=== PATIENT | male | born 1965 | race Caucasian/White ===

== ENCOUNTER 2016-05-26 13:21 | Inpatient (IN) | payer OTHER ==
[~2016-05-26] VITALS: Ht 185.4 cm; Wt 93.9 kg
[~2016-05-26 13:21] MED LIST: ALBUTEROL0.09 MG/A1 INH; FENOFIBRATE120 MG PO; GINKGO BILOBA60 M3 PO; GLUCOPHAGE1000 M1 PO; LIPOFEN50 MG PO; MULTI-DAY VITA1 EACH PO; PANTOPRAZOLE SO20 M1 PO; PRILOSEC OTC20 MG PO; ROBITUSSIN AC SY5 ML PO; TRAMADOL50 MG PO; VITAMIN B COMP1 EACH PO; VITAMIN E100 UNI2 PO; ZESTRIL10 M1 PO; ZINC50 M2 PO; ZITHROMAX Z-PA250 M1 PO; ZOFRAN ODT4 MG PO
--- NOTE | 2016-05-26 13:29 | NUR ---
TRIAGE: 50 Y/O MALE PRESENTS WITH SWOLLEN BILATERAL CHEEKS, UPPER AND BOTTOM LIP - UPPER>BOTTOM. ROOM AIR SPO2 95%. REPORTS SLIGHT SOB. REPORTS FEELS LIKE "ESOPHAGEAL RING IS SWELLING" WELL GROIN SWELLING. DENIES ITCHING INSIDE MOUTH. TOOK A BENDRYL AT 0600 THIS MORNING. REPORTS BROKEN TOOTH, RIGHT UPPER. REPORTS WAS DEEP CLEANING THE HOUSE YESTERDAY - BLEACH AND CLEANSERS. * ALSO ON LISINOPRIL.
--- NOTE | 2016-05-26 13:36 | NUR ---
HIRAM REILLY AT BEDSIDE FOR EVAL.
--- NOTE | 2016-05-26 13:44 | ED SKIN/ALLERGY COMPLAINT ---
History of Present Illness General Chief Complaint: Allergy Symptoms Stated Complaint: FACE SWOLLEN, ?ALLERGIC REACTION Source: patient Exam Limitations: no limitations Allergies Coded Allergies: Penicillins (CHILDHOOD REACTION 05/07/15) Reconcile Medications Fenofibrate 120 MG TABLET 1 TAB PO DAILY CHOLESTEROL (Reported) Ginkgo Biloba [place] Extract (Ginkgo Biloba) (Unknown Strength) TABLET (Unknown Dose) PO DAILY SUPPLEMENT (Reported) Insulin Glargine,Hum.rec.anlog (Lantus Solostar) 100 UNIT/ML (3 ML) INSULN.PEN 18 U SC BID DIABETES (Reported) Lisinopril (Zestril) 10 MG TABLET 1 TAB PO DAILY BP (Reported) Metformin HCl (Glucophage) 1,000 MG TABLET 1,000 MG PO BID DIABETES (Reported ) Pantoprazole Sodium 20 MG TABLET.DR 40 MG PO DAILY GI (Reported) Triage Note: TRIAGE: 50 Y/O MALE PRESENTS WITH SWOLLEN BILATERAL CHEEKS, UPPER AND BOTTOM LIP - UPPER>BOTTOM. ROOM AIR SPO2 95%. REPORTS SLIGHT SOB. REPORTS FEELS LIKE "ESOPHAGEAL RING IS SWELLING" WELL GROIN SWELLING. DENIES ITCHING INSIDE MOUTH. TOOK A BENDRYL AT 0600 THIS MORNING. REPORTS BROKEN TOOTH, RIGHT UPPER. REPORTS WAS DEEP CLEANING THE HOUSE YESTERDAY - BLEACH AND CLEANSERS. * ALSO ON LISINOPRIL. Triage Nurses Notes Reviewed? yes Onset: Abrupt Duration: day(s): (last ngith getting worse), constant, getting worse Timing: recent history Severity: moderate, severe No Modifying Factors: none HPI: 50-year-old male comes into emergency room for further evaluation of lip swelling that has been getting progressively worse. Patient reports it began last night. Patient is on lisinopril for blood pressure. Patient took his last dose of lisinopril is morning about 30 minutes prior to arrival. Patient reports that the swelling has progressively got worse and his upper lip. Denies any difficulty breathing at the moment. Patient reports she's also has some swelling in his genitalia. Denies any prior history of this ever happening before. Denies any other associated symptoms. (HIRAM JNOES) Vital Signs & Intake/Output Vital Signs & Intake/Output Vital Signs Date Time Temp Pulse Resp B/P Pulse O2 O2 Flow FiO2 Ox Delivery Rate 05/26 1406 967 05/26 1325 96.5 89 18 160/81 96 Room Air Room Air Past History Travel History Traveled to [place] past 21 day No Medical History Any Pertinent Medical History? 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 No (HIRAM JONES) Review of Systems Review of Systems Constitutional: Reports: no symptoms. EENTM: Reports: see HPI. Respiratory: Reports: see HPI. Cardiovascular: Reports: no symptoms. GI: Reports: no symptoms. Genitourinary: Reports: no symptoms. Musculoskeletal: Reports: no symptoms. Skin: Reports: no symptoms. Neurological/Psychological: Reports: no symptoms. Hematologic/Endocrine: Reports: no symptoms. Immunologic/Allergic: Reports: see HPI. All Other Systems: Reviewed and Negative (HIRAM JONES) Physical Exam Physical Exam General Appearance: well developed/nourished, mild distress Head: atraumatic Eyes: Bilateral: normal appearance. Ears, Nose, Throat: hearing grossly normal, angioedema upper and lower lip, mild swelling of tongue, no airway compromise or stridor at this time, Neck: normal inspection Respiratory: no respiratory distress Cardiovascular: regular rate/rhythm Back: normal inspection Extremities: normal inspection, normal range of motion, no edema Neurologic/Psych: awake, alert, oriented x 3, normal mood/affect Lymphatic: no anterior cervical amee (HIRAM JONES) Progress Differential Diagnosis: abscess/cellulitis, allergic reaction, anaphylaxis, angioedema, asthma, drug reaction Initial ED EKG: normal intervals, normal p-waves, normal sinus rhythm, rate (63) (HIRAM JONES) Plan of Care: Orders Procedure Date/time Status Patient Data 05/26 1501 Active EKG 05/26 1446 Active Telemetry/Transmitter Engineer 05/26 1342 Active CBC WITHOUT DIFFERENTIAL 05/26 1342 Complete BASIC METABOLIC PANEL 05/26 1342 Complete Laboratory Tests 05/26/16 1403: Anion Gap 10, Estimated GFR > 60, BUN/Creatinine Ratio 18.9, Glucose 108 H, Calcium 10.4 H, CBC w Diff NO MAN DIFF REQ, RBC 5.14, MCV 89.3, MCH 29.6, RDW 12.8, MPV 7.5, Gran % 74.6, Lymphocytes % 21.4, Monocytes % 1.4 L, Eosinophils % 2.3, Basophils % 0.3, Absolute Granulocytes 8.2 H, Absolute Lymphocytes 2.4, Absolute Monocytes 0.2, Absolute Eosinophils 0.3, Absolute Basophils 0, PUBS MCHC 33.1 Departure Departure Disposition: STILL A PATIENT Condition: Stable Clinical Impression 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 Patient took his lisinopril about 30 minutes prior to arrival. Patient will require close observation and airway management. Patient may require anesthesia intubation if the patient decompensate. Frequent vital checks. High risk. Patient would do poorly as an outpatient (HIRAM JONES) PA/SIGNAL MAINTENANCE TECHNICIAN Co-Sign Statement Statement: ED Attending supervision documentation- [X] I saw and evaluated the patient. I have also reviewed all the pertinent lab results and diagnostic results. I agree with the findings and the plan of care as documented in the PA's/SIGNAL MAINTENANCE TECHNICIAN's documentation. [] I have reviewed the ED Record and agree with the PA's/SIGNAL MAINTENANCE TECHNICIAN's documentation. [] Additions or exceptions (if any) to the PAs/SIGNAL MAINTENANCE TECHNICIAN's note and plan are summarized below: [] (JEISON COLVIN,HAL Gray) Critical Care Note Critical Care Note Critical Care Time: 30-74 min (35) (HIRAM JONES)
--- NOTE | 2016-05-26 14:05 | NUR ---
IV ESTABLISHED MEDICATED DIRECTED (SEE MAR)
[2016-05-26 14:09] LABS: ABSOLUTE BASOPHIL COUNT 0 /CUMM (0.0-0.2); ABSOLUTE EOSINOPHIL COUNT 0.3 /CUMM (0.0-0.7); ABSOLUTE GRANULOCYTE CT 8.2 /CUMM (1.4-6.5); ABSOLUTE LYMPH COUNT 2.4 /CUMM (1.2-3.4); ABSOLUTE MONOCYTE COUNT 0.2 /CUMM (0.10-0.60); BASOPHIL % 0.3 % (0.0-2.0); EOSINOPHIL % 2.3 % (0-5); GRANULOCYTE % 74.6 % (42.2-75.2); HEMATOCRIT 45.9 % (42-52); MEAN CORPUSCULAR HGB 29.6 PG (27.0-31.0); MEAN CORPUSCULAR HGB CONC 33.1 G/DL (33.0-37.0); MEAN CORPUSCULAR VOLUME 89.3 FL (80.0-94.0); MEAN PLATELET VOLUME 7.5 FL (7.4-10.4); PLATELET COUNT 302 /CUMM (130-400); RBC DISTRIBUTION WIDTH 12.8 % (11.5-14.5); RED BLOOD CELL CT 5.14 /CUMM (4.70-6.10)
[2016-05-26] MEDS ORDERED: LANTUS SOL100 UNIT/1 SC (15:00)
--- NOTE | 2016-05-26 15:38 | NUR ---
HOUSE STAFF IN ROOM WITH PT
--- NOTE | 2016-05-26 15:50 | History & Physical ---
LAURA RICHARD MD 05/26/16 7330: General Information and HPI MD Statement: I have seen and personally examined TOMAS BAPTISTE and documented this H&P. The patient is a 50 year old M who presented with a patient stated chief complaint of [lip swelling]. Source of Information: patient, family Exam Limitations: no limitations History of Present Illness: 50-year-old male with PMH of HTN, HLD, IDDM, esophageal ring, presented with bilateral cheeks, lips, and scrotal swelling. It started at 5am this morning when he woke up. He took benadryl at 6am, without significant relief. He finally presented to the ED around 130 pm, as per ED note, reports feeling like "esophageal ring is swelling". Pt took his lisinopril this morning, which he has been taking for 2 years. He denies any new meds, and reports that he has been on his current meds for 2 years. He denies eating unusual food, but recalls that he had a similar episode of swelling when he was a child, when he ate ham (but pt unsure). No recurrent episodes. Yesterday, his right upper tooth broke, and he put advil gel cap in the area to help relieve the pain. He has not seen a dentist yet. He does not know how it broke. Yesterday, he spent the day cleaning the house with bleach. He had 5-6 drinks of beer and bourbon yesterday, which is not unusual for him and his girlfriend to do once a week. Currently, he reports "upset stomach", mild abdominal discomfort. Denies burning sensation, nausea, vomiting, constipation, diarrhea. In the ED, he received 125 mg IV solumedrol, 50 mg IV diphenhydramine, 20 mg IV famotidine. On our examination, he has bilateral cheek, upper and lower lip swelling, speaking with a hot potato voice (not his baseline), some scrotal swelling. His respiratory status currently stable. No tongue swelling noted, but pt feels that the anterior part of his tongue feels swollen. No tenderness appreciated on both cheeks, particularly at the site where the tooth broke. I noticed that his left eye appears more swollen and droopy, but according to his girlfriend, that is chronic. Pupils round and reactive to light. Extraocular muscle movements intact. I was on the phone with Dr. Hansen (ENT) to evaluate his airway. I have told the charge nurse in the ED, Tosha, he will need flexible fiberoptic laryngoscope with lightsource. She said she will get ENT cart ready for him. Allergies/Medications Home Med list Fenofibrate 120 MG TABLET 1 TAB PO DAILY CHOLESTEROL (Reported) Ginkgo Biloba [place] Extract (Ginkgo Biloba) (Unknown Strength) TABLET (Unknown Dose) PO DAILY SUPPLEMENT (Reported) Insulin Glargine,Hum.rec.anlog (Lantus Solostar) 100 UNIT/ML (3 ML) INSULN.PEN 18 U SC BID DIABETES (Reported) Lisinopril (Zestril) 10 MG TABLET 1 TAB PO DAILY BP (Reported) Metformin HCl (Glucophage) 1,000 MG TABLET 1,000 MG PO BID DIABETES (Reported ) Pantoprazole Sodium 20 MG TABLET.DR 40 MG PO DAILY GI (Reported) Past History Travel History Traveled to [place] past 21 day No Medical History Neurological: NONE EENT: NONE Cardiovascular: hypertension, hyperlipidemia Respiratory: NONE Gastrointestinal: GERD, ESOPHAGEAL RING STRETCHED Hepatic: NONE Renal: NONE Musculoskeletal: NONE Psychiatric: NONE Endocrine: diabetes Blood Disorders: NONE 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 Home Who Do You Live With? Girlfriend Services at Home: None Primary Language: German Smoking Status: Never Smoked ETOH Use: occasional use Illicit Drug Use: denies illicit drug use Functional Ability ADLs Independent: dressing, eating, toileting, bathing. Ambulation: independent IADLs Independent: shopping, housework, finances, food prep, telephone, transportation , medication admin. Review of Systems Review of Systems Constitutional: Denies: chills, fever. EENTM: Denies: visual changes. Cardiovascular: Denies: chest pain, palpitations. Respiratory: Reports: cough. Denies: short of breath. GI: Reports: abdominal pain. Denies: constipation, diarrhea, nausea, vomiting. Genitourinary: Denies: dysuria. Exam & Diagnostic Data Last 24 Hrs of Vital Signs/I&O Vital Signs Date Time Temp Pulse Resp B/P Pulse O2 O2 Flow FiO2 Ox Delivery Rate 05/26 1406 967 05/26 1325 96.5 89 18 160/81 96 Room Air Room Air Intake & Output 05/26 1600 05/26 0800 05/26 0000 Intake Total Output Total Balance Patient 93.894 kg Weight Physical Exam General Appearance Alert, Oriented X3, Cooperative, No Acute Distress Skin Noticable swelling of cheeks,lips and scrotum and base of penis HEENT EOMI, Mucous Membr. moist/pink, tongue does not appear swollen Neck Supple, No JVD, +2 Carotid Pulse wo Bruit Cardiovascular Regular Rate, Normal S1, Normal S2, No Murmurs, Gallops, Rubs Lungs Clear to Auscultation, Normal Air Movement Abdomen Normal Bowel Sounds, Soft, No Tenderness Neurological Normal Speech, Strength at 5/5 X4 Ext, Normal Tone Extremities No Edema Last 24 Hrs of Labs/Edgar: Laboratory Tests 05/26/16 1403: Anion Gap 10, Estimated GFR > 60, BUN/Creatinine Ratio 18.9, Glucose 108 H, Calcium 10.4 H, Troponin I < 0.01, CBC w Diff NO MAN DIFF REQ, RBC 5.14, MCV 89.3, MCH 29.6, RDW 12.8, MPV 7.5, Gran % 74.6, Lymphocytes % 21.4, Monocytes % 1.4 L, Eosinophils % 2.3, Basophils % 0.3, Absolute Granulocytes 8.2 H, Absolute Lymphocytes 2.4, Absolute Monocytes 0.2, Absolute Eosinophils 0.3, Absolute Basophils 0, PUBS MCHC 33.1 Microbiology 05/26 1555 UPPER RESP: Surveillance Culture - ORD 05/26 1555 GI: Surveillance Culture - ORD Diagnostic Data EKG Results T wave inversion V4,V5 Sinus rhythm Diffuse flat T waves (not new) Assessment/Plan Assessment: 50-year-old male with PMH of HTN, HLD, IDDM, esophageal ring, presented with bilateral cheeks, lips, and scrotal swelling. No history of new meds/food. Possible chemical exposure from home cleaning. 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 He has not seen a dentist yet. Pt admitted to ICU for close monitoring of respiratory status. # Bilateral cheeks, lips, and scrotal swelling, unknown trigger, been on lisinopril for 2 years - In the ED, he received 125 mg IV solumedrol, 50 mg IV diphenhydramine, 20 mg IV famotidine. - Currently respiratory status stable * Continue solumedrol 40 Q6 * ENT consult placed with Dr. Hansen, will evaluate his airway with flexible fiberoptic laryngoscope with lightsource. ED charge nurse will get ENT cart. * Low threshold to intubate * Dental f/u at discharge # Hx of HLD * Continue fenofibrate # Hx of DM * Hold home lantus and metformin * Accucheck, and novolog SS Diet: Advance as tolerated DVT ppx: mech and pharm FULL CODE As Ranked By This Provider Problem List: 1. Angioedema Core Measures/Miscellaneous Acute Coronary Syndrome ACS Diagnosis: No Cerebrovascular Accident CVA/TIA Diagnosis: No Congestive Heart Failure CHF Diagnosis: No Venous Thromboembolism VTE Risk Factors: Acute medical illness No Mech VTE prophylaxis d/t: No contraindications No VTE Pharm Prophylaxis d/t: No contraindications VTE Diagnosis: No VTE Type: NONE VTE Confirmed by (Test): NONE Severe Sepsis Severe Sepsis Present: No Septic Shock Septic Shock Present: No Miscellaneous Documentation Attending Case Discussed With: JHONNY COLVIN,GAYLE Primary Care Physician: REX RODRIGUEZ MD Patient sees these Specialists Dr. Paulino NIXON Level of Patient Care: Critical Care (CRI) QUE RICHARD 05/26/16 1639: Resident Review Statement Resident Statement: discussed with human resource internship, agreed with human resource internship Other Findings: Patient is 50-year-old male with past medical history of hyperlipidemia, hypertension, diabetes mellitus came with a chief complaint of swelling of lips, tongue and groin area since this morning. Patient states that yesterday he did a lot of cleaning of the house with bleach along with his until 7 PM. He reported some itch in his groin area yesterday and this morning when he woke up, he had swollen lips and tongue around 5 AM. Patient took Benadryl at home and went back to sleep. When he woke up again he noticed that the swelling of the tongue lips and mouth has worsened. He does not report of any difficulty breathing, rash, any new medication (he has been on lisinopril since 2 years now and never had such symptoms), no new food etc. patient reports that he had a similar episode as a child when he was 10 years old and it was probably secondary into ham. EKG demonstrative some flattening of T waves in LEAD 3 and T-wave inversion in V4 V5 Assessment and plan Will admit patient to ICU for closer monitoring of angioedema Patient got 125 mg of Solu-Medrol and 50 mg of IV Benadryl in ER, per his swelling has improved a little bit. Will continue him on Solu-Medrol [address] Martínez is updated regarding his status We'll get ENT consult Will hold off lisinopril for now Low threshold for intubation if patient deveops SOB or worsening of his angioedema. DVT prophylaxis Alps Patient is full code JHONNY COLVIN,GAYLE 05/27/16 1023: General Information and HPI Allergies/Medications Allergies: Coded Allergies: Penicillins (CHILDHOOD REACTION 05/07/15) lisinopril (ANGIODEMA 05/26/16) Attending MD Review Statement Attending Statement Attending MD Statement: examined this patient, discuss w/resident/PA/EARLY CHILDHOOD TEACHER ASSISTANT, agreed w/resident/PA/EARLY CHILDHOOD TEACHER ASSISTANT, discussed with family, reviewed EMR data (avail) Attending Assessment/Plan: Patient seen and examined. Plan of care discussed with the medical team and the patient. Available lab work and radiology test reports were reviewed. Patient was seen in emergency room. Patient currently was cleaning his house with the different corporate counsel to 7 PM the before admission. His is on lisinopril had taken a dose in the morning and on the admission day did not take it in the morning. In fact he took a dose at 1 PM long after his symptoms appeared. He presented with swelling of lips and tongue without any dysphonia or airway compromise. Patient will be admitted to ICU for close monitoring. Will obtain ENT and pulmonary consult. Patient was given Solu-Medrol Benadryl and Pepcid. I believe this is likely from allergic reaction to chemicals he was using for cleaning the house.
--- NOTE | 2016-05-26 16:54 | NUR ---
PT HAS BED ASSIGNMENT 105
--- NOTE | 2016-05-26 17:03 | NUR ---
ENT DR WAN AT BEDSIDE AT THIS TIME
--- NOTE | 2016-05-26 17:21 | NUR ---
DR. WAN STATES NO EDEMA NOTED IN PT'S THROAT DECREASED SWELLING TO UPPER AND LOWER LIPS STATES HIS TOP LIP STILL FEELS A LITTLE FUNNY
--- NOTE | 2016-05-26 17:39 | NUR ---
REPORT GIVEN TO ARLIN JAMES ICU TRANSPORT NOTIFIED
[2016-05-26 18:28] VITALS: BP 156/74
--- NOTE | 2016-05-26 18:34 | NUR ---
1800: RECEIVED PT FROM ER. A+OX3. ON RA. DENIES SOB OR TROUBLE SWALLOWING. NSR ON MONITOR. VSS. AFEBRILE. LUNGS CLEAR. ABDOMEN SOFT, +BS. LAST BM TODAY. VOIDING IN URINAL. SKIN INTACT. ALPS ON. PT STATES HIS SWELLING FEELS BETTER BUT HE STILL FEELS SLIGHT SWELLING IN HIS UPPER LIP, CHEEKS AND ON HIS NOSE. PER ENT NO THROAT SWELLING. PT TOLERATING CLEAR LIQUID DIET. CHOPPED DIET ORDERED FOR PT. PT AND FAMILY ORIENTED TO ROOM AND CALL MCHUGH. URINAL PROVIDED. IV SOLUMEDROL GIVEN VIA LEFT HAND IV. WILL MONITOR.
--- NOTE | 2016-05-26 19:08 | NUR ---
AUTO CUFF READING 180/80'S. MANUAL B/P 176/80. OEI AWARE
--- NOTE | 2016-05-26 22:59 | NUR ---
PT IS A/0 X 3 ZAPATA TO COMMAND DENIES PAIN, RESP DISTRESS OR DIFFICULTY SWALLOWING.
[2016-05-27] VITALS: BP 135/60
--- NOTE | 2016-05-27 06:09 | Event Note ---
Event Note Event Note: Notified by nursing staff that patient had sudden onset mild shortness of breath. On evaluation of the patient, his vital signs were within normal limits and specifically his oxygen saturation was 95%. Patient did sound muffled and on examination of the oropharynx, his uvula appears enlarged and blocking a large portion of the airway. Tounge also appeared enlarged. Patient examined by myself and my resident. IV pepcid, IV benadryl ordered and patient given his AM IV solumedrol. Will monitor patient closely. Patient responding well and voice less muffled. O2 saturation maintained. Will make AM team aware of overnight events.
[2016-05-27 07:08] LABS: ABSOLUTE BASOPHIL COUNT 0 /CUMM (0.0-0.2); ABSOLUTE EOSINOPHIL COUNT 0 /CUMM (0.0-0.7); ABSOLUTE LYMPH COUNT 0.9 /CUMM (1.2-3.4); ABSOLUTE MONOCYTE COUNT 0.1 /CUMM (0.10-0.60); BASOPHIL % 0.1 % (0.0-2.0); EOSINOPHIL % 0 % (0-5); HEMATOCRIT 41.6 % (42-52); MEAN CORPUSCULAR HGB 30.1 PG (27.0-31.0); MEAN CORPUSCULAR HGB CONC 33.3 G/DL (33.0-37.0); MEAN CORPUSCULAR VOLUME 90.5 FL (80.0-94.0); MEAN PLATELET VOLUME 7.9 FL (7.4-10.4); PLATELET COUNT 307 /CUMM (130-400); RBC DISTRIBUTION WIDTH 12.8 % (11.5-14.5); RED BLOOD CELL CT 4.59 /CUMM (4.70-6.10)
--- NOTE | 2016-05-27 07:21 | Cons- CRCU ---
See Addendum LAURA RICHARD MD 05/27/16 0720: General Information and HPI Consulting Request Date of Consult: 05/27/16 History of Present Illness: Pt was admitted for angioedema most likely secondary to lisinopril use. ENT evaluated his airway in the ED. In the morning around 430am, he was having trouble breathing and his uvula and tongue was noted to be edematous, given pepcid, solumedrol, and benadryl, now feeling improved. He continues to have muffled (hot potato voice). reports that swelling at the base of the penis resolved but continues to have scrotal swelling. I have told the pt in detail that he should avoid taking ACEI (ends in -prils), and if possible also avoid ARBs (ends in -sartan). Pt and his girlfriend showed clear understanding. We will try 10mg amlodipine for BP control. He is now stable to be transferred to . Called ENT to re-evaluate him. Dr. Díaz bone glue maker. Methylpred reduced to 40 q8. 24 hours: max temp 98.1 SR 72-90 RR 16-20 Systolic BP 123-182 diastolic BP 60-83 Allergies/Medications Home Med List: Fenofibrate 120 MG TABLET 1 TAB PO DAILY CHOLESTEROL (Reported) Ginkgo Biloba [place] Extract (Ginkgo Biloba) (Unknown Strength) TABLET (Unknown Dose) PO DAILY SUPPLEMENT (Reported) Insulin Glargine,Hum.rec.anlog (Lantus Solostar) 100 UNIT/ML (3 ML) INSULN.PEN 18 U SC BID DIABETES (Reported) Lisinopril (Zestril) 10 MG TABLET 1 TAB PO DAILY BP (Reported) Metformin HCl (Glucophage) 1,000 MG TABLET 1,000 MG PO BID DIABETES (Reported ) Pantoprazole Sodium 20 MG TABLET. 40 MG PO DAILY GI (Reported) Review of Systems Review of Systems Constitutional: Reports: see HPI. Past History Travel History Traveled to [place] past 21 day No Medical History Neurological: NONE EENT: NONE Cardiovascular: hypertension, hyperlipidemia Respiratory: NONE Gastrointestinal: GERD, ESOPHAGEAL RING STRETCHED Hepatic: NONE Renal: NONE Musculoskeletal: NONE Psychiatric: NONE Endocrine: diabetes Blood Disorders: NONE Cancer(s): NONE DIRECTOR INDUSTRIAL NURSING/Reproductive: NONE Surgical History Surgical History: non-contributory Psychosocial History Where Do You Live? Home Who Do You Live With? Girlfriend Services at Home: None Primary Language: Bengali Smoking Status: Never Smoked ETOH Use: occasional use Illicit Drug Use: denies illicit drug use Functional Ability ADLs Independent: dressing, eating, toileting, bathing. Ambulation: independent IADLs Independent: shopping, housework, finances, food prep, telephone, transportation , medication admin. Exam & Diagnostic Data Last 24 Hrs of Vital Signs/I&O Vital Signs Date Time Temp Pulse Resp B/P Pulse O2 O2 Flow FiO2 Ox Delivery Rate 05/27 0800 95 Room Air Room Air 05/27 0800 97.8 78 22 134/70 95 Room Air Room Air 05/27 0000 97.3 80 18 135/60 94 Room Air 05/26 2024 92 162/67 05/26 1828 97.6 72 18 156/74 95 Room Air 05/26 1728 98.2 75 16 132/61 94 Room Air 05/26 1515 80 16 148/78 95 05/26 1406 967 05/26 1325 96.5 89 18 160/81 96 Room Air Room Air Intake & Output 05/27 1600 05/27 0800 05/27 0000 Intake Total 200 1040 Output Total 700 350 Balance -500 690 Intake, Oral 200 1040 Output, Urine 700 350 Patient 93.894 kg Weight Physical Exam General Appearance: alert, awake, comfortable, no respiratory distress Head: bilateral cheek swelling , uvula and tongue does not appear enlarged Eyes: Bilateral: normal appearance, PERRL, EOMI. Ears, Nose, Throat: normal pharynx, poor dentition Respiratory: normal breath sounds, chest non-tender, no respiratory distress Cardiovascular: regular rate/rhythm, edema, gallop Last 48 Hrs of Labs/Edgar: Laboratory Tests 05/27/16 0630: Anion Gap 11, Estimated GFR > 60, BUN/Creatinine Ratio 20.0, Hemoglobin A1c 7.4 H, CBC w Diff NO MAN DIFF REQ, RBC 4.59 L, MCV 90.5, MCH 30.1, RDW 12.8, MPV 7.9, Gran % 90.5 H, Lymphocytes % 8.6 L, Monocytes % 0.8 L, Eosinophils % 0, Basophils % 0.1, Absolute Granulocytes 10.0 H, Absolute Lymphocytes 0.9 L, Absolute Monocytes 0.1 L, Absolute Eosinophils 0, Absolute Basophils 0, PUBS MCHC 33.3 05/26/16 1403: Anion Gap 10, Estimated GFR > 60, BUN/Creatinine Ratio 18.9, Glucose 108 H, Calcium 10.4 H, Troponin I < 0.01, CBC w Diff NO MAN DIFF REQ, RBC 5.14, MCV 89.3, MCH 29.6, RDW 12.8, MPV 7.5, Gran % 74.6, Lymphocytes % 21.4, Monocytes % 1.4 L, Eosinophils % 2.3, Basophils % 0.3, Absolute Granulocytes 8.2 H, Absolute Lymphocytes 2.4, Absolute Monocytes 0.2, Absolute Eosinophils 0.3, Absolute Basophils 0, PUBS MCHC 33.1 Assessment/Plan Impression/Plan: 50-year-old male with PMH of HTN, HLD, IDDM, esophageal ring, presented with bilateral cheeks, lips, and scrotal swelling. No history of new meds/food. Possible chemical exposure from home cleaning. 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 He has not seen a dentist yet. Pt admitted to ICU for close monitoring of respiratory status. # Bilateral cheeks, lips, and scrotal swelling, unknown trigger, been on lisinopril for 2 years - In the ED, he received 125 mg IV solumedrol, 50 mg IV diphenhydramine, 20 mg IV famotidine. - Currently respiratory status stable although he had an episode of difficulty breathing on 05/27/16 requiring another dose of benadryl and pepcid. - CXR: Left basilar airspace opacity may reflect atelectasis, an underlying infiltrate is not excluded. * Solumedrol 80 Q 8 as per ENT * Order benadryl and pecid as needed * Dr. Hansen from ENT evaluated his airway in the ED, spoke to Dr. Díaz, recommend solumedrol 80Q8 for 2 days, then reduce to q12 after. Dr. Díaz does not think he needs to come and re-evaluate his airway, if his respiratory status worsens, he suggests intubation. Expect edema to improve in 48 hours. * Low threshold to intubate * Dental f/u at discharge * Follow up Pt/INR * Stable for transfer to with repeat ENT evaluation. # Hx of HTN * Lisinopril added to allergy list * Pt has been instructed to not take ACEI/ARBs (-pril/-sartan) * Amlodipine 10 mg started, continue as outpatient if BP well controlled # Hx of HLD * Continue fenofibrate # Hx of DM - hba1c 7.4 * Hold home lantus and metformin * Accucheck, and novolog SS # Continue home meds - Protonix Diet: heart healthy (chopped and thin) DVT ppx: mech and pharm (heparin) FULL CODE Consult Acknowledgment - Thank you for your consult request. CLEMENT ABDI MD 05/27/16 0914: General Information and HPI Consulting Request Date of Consult: 05/27/16 Requested By: Li Reason for Consult: Angioedema Source of Information: patient Exam Limitations: no limitations Allergies/Medications Allergies: Coded Allergies: Penicillins (CHILDHOOD REACTION 05/07/15) lisinopril (ANGIODEMA 05/26/16) Current Medications: Current Medications Sig/Madelyn Start time Last Medication Dose Route Stop Time Status Admin Amlodipine Besylate 5 MG ONCE ONE 05/26 1915 DC 05/26 PO 05/26 191 2024 Diphenhydramine HCl 50 MG ONCE ONE 05/27 0615 DC 05/27 IV 05/27 0616 0612 Diphenhydramine HCl 0 .STK-MED ONE 05/26 1355 DC .ROUTE Diphenhydramine HCl 50 MG ONCE ONE 05/26 1345 DC 05/26 IV 05/26 1346 1405 Famotidine 20 MG ONCE ONE 05/27 0615 DC 05/27 IV 05/27 0616 0627 Famotidine 0 .STK-MED ONE 05/26 1355 DC IV Famotidine 20 MG ONCE ONE 05/26 1345 DC 05/26 IV 05/26 1346 1405 Fenofibrate 96 MG DAILY 05/27 1000 AC 05/27 PO 0852 Insulin Aspart 0 TIDAC 05/26 1700 AC 05/27 SC 0848 Melatonin 5 MG AT BEDTIME 05/26 2200 AC 05/26 PO 2233 Methylprednisolone 40 MG Q6 05/26 1800 AC 05/27 IV 0600 Methylprednisolone 0 .STK-MED ONE 05/26 1355 DC .ROUTE Methylprednisolone 125 MG ONCE ONE 05/26 1345 DC 05/26 IV 05/26 1346 1405 Review of Systems Comments 18 point review of systems was performed and reviewed. Please see pertinent positives and pertinent negatives in the HPI. Otherwise ROS is negative. Exam & Diagnostic Data Last 24 Hrs of Vital Signs/I&O Vital Signs Date Time Temp Pulse Resp B/P Pulse O2 O2 Flow FiO2 Ox Delivery Rate 05/27 0000 97.3 80 18 135/60 94 Room Air 05/26 2024 92 162/67 05/26 1828 97.6 72 18 156/74 95 Room Air 05/26 1728 98.2 75 16 132/61 94 Room Air 05/26 1515 80 16 148/78 95 05/26 1406 967 05/26 1325 96.5 89 18 160/81 96 Room Air Room Air Intake & Output 05/27 1600 05/27 0800 05/27 0000 Intake Total 200 1040 Output Total 700 350 Balance -500 690 Intake, Oral 200 1040 Output, Urine 700 350 Patient 207 lb Weight Last 48 Hrs of Labs/Edgar: Laboratory Tests 05/27/16 0630: Anion Gap 11, Estimated GFR > 60, BUN/Creatinine Ratio 20.0, CBC w Diff NO MAN DIFF REQ, RBC 4.59 L, MCV 90.5, MCH 30.1, RDW 12.8, MPV 7.9, Gran % 90.5 H, Lymphocytes % 8.6 L, Monocytes % 0.8 L, Eosinophils % 0, Basophils % 0.1, Absolute Granulocytes 10.0 H, Absolute Lymphocytes 0.9 L, Absolute Monocytes 0.1 L, Absolute Eosinophils 0, Absolute Basophils 0, PUBS MCHC 33.3 05/26/16 1403: Anion Gap 10, Estimated GFR > 60, BUN/Creatinine Ratio 18.9, Glucose 108 H, Calcium 10.4 H, Troponin I < 0.01, CBC w Diff NO MAN DIFF REQ, RBC 5.14, MCV 89.3, MCH 29.6, RDW 12.8, MPV 7.5, Gran % 74.6, Lymphocytes % 21.4, Monocytes % 1.4 L, Eosinophils % 2.3, Basophils % 0.3, Absolute Granulocytes 8.2 H, Absolute Lymphocytes 2.4, Absolute Monocytes 0.2, Absolute Eosinophils 0.3, Absolute Basophils 0, PUBS MCHC 33.1 Assessment/Plan Other Findings/Comments: IClement M.D. have examined this patient, reviewed available EMR data, personally reviewed images, discussed with resident/PA/TRAFFIC WORKER, discussed management plan with housestaff and nursing staff, discussed managment plan all of healthcare providers, discussed management plan with patient and/or family, agreed with resident/PA/TRAFFIC WORKER. The past history and parts of the chart have been autopopulated. Impression 50 year old man - likely lisinopril induced angioedema, improved - htn, hyperlipidemia, dm Plan - ENT appreciated, progress note in chart - no airway swelling on laryngoscopy per ENT - change htn meds to norvasc will increase to 10mg - solumedrol reduce to q8h for now, until re-evaluated by ENT - benadryl, steroids, pepcid - baseline CXR, next blood draw add coags - cointinue tricor - insulin coverage, can check a1c - transfer to DVT prophylaxis at all times TTS 60 min Consult Acknowledgment - Thank you for your consult request.
[2016-05-27 08:00] VITALS: BP 134/70
--- NOTE | 2016-05-27 08:16 | NUR ---
LATE ENTRY:AT 0600 PT C/O OF SUDDEN ONSET DIFFICULTY BREATHING, TALKING. RUFUS CALLED STAT O2 SAT 98% ON ROOM AIR 6AM STEROID GIVEN IMMEDIATELY, PT EXTREMELY NERVOUS NURSE REMAINS AT BEDSIDE.HOB ELEVATED. SEEN BY DR MICHI GUDINO IVP GIVEN, B/W DRAWN ADDITIONAL IV ACCESS. PT SKIN PINK BUT APPEARS TAUTE, FIRM SHINY, RESEMBLING A CONDITION LIKE SCLERODERMA. DIFFICULT TO OBTAIN BLOOD AND IV AT THIS TIME. PT BEGAN EPISODE WITH HIS SNORING WAKING HIM UP AND EXTREMELY STUFFY NOSE. WITHIN A FEW MINUTES AFTER BEING MEDICATED, NASAL STUFFINESS RESOLVED, SPEECH IMPROVED, LESS ANXIOUS. O2 SAT DID RETURN TO BASELINE OF 94. SEEN BY RESIDENT AND LONG WALL MINING MACHINE TENDER AGAIN. NURSE REMAINED AT BEDSIDE THROUGHOUT EPISODE.
[2016-05-27 08:25] LABS: GRANULOCYTE % 90.5 % (42.2-75.2)
--- NOTE | 2016-05-27 10:00 | RADIOLOGY REPORT ---
EXAMINATION: XR PORTABLE CHEST CLINICAL INFORMATION: Stridor COMPARISON: 11/23/2015 TECHNIQUE: Portable AP view of the chest was obtained. FINDINGS: The cardiomediastinal silhouette is stable. There is an airspace opacity in the left lung base, the lungs are otherwise clear. No pleural effusion or pneumothorax identified. IMPRESSION: Left basilar airspace opacity may reflect atelectasis, an underlying infiltrate is not excluded.
--- NOTE | 2016-05-27 10:22 | Admission Certification ---
Admission Certification Certification Statement - As attending physician, I certify that at the time of - admission, based on clinical presentation, severity of - symptoms, need for further diagnostic testing and - therapeutic interventions, and risk of adverse outcomes - without in-hospital treatment, in my clinical assessment, - this patient requires an acute hospital stay for a minimum - of two nights or longer. I have also considered psychsocial - factors such as support system, advanced age, financial - issues, cognitive issues, and failed out-patient treatments, - past re-admission history, safety of patient, and lack of - compliance as applicable. Specific rationale supporting this admission is: Angioedema and allergic reaction with impending airway compromise
[2016-05-27 16:00] VITALS: BP 130/64
[2016-05-27 16:10] LABS: PT 11.4 SEC (9.4-12.5)
--- NOTE | 2016-05-27 19:39 | NUR ---
Received patient at 0800, Alert and oriented x3. C/O some differences in his voice/mouth from the swelling episode that he had at 6 am but that it is improving. Small amount of facial swelling noted to the jaw but tongue and rest of the mouth present WNL. Skin otherwise intact and without edema. Positive pedal and radial pulses bilaterally. NSR 70s on the monitor, WFU=201m. Patient denies CP. On room air, lungs clear. O2 sat 94-96%. Voiding in the toilet/urinal independently. Accu check's with meals w/ novolog given and diet changed to chopped CC3. Patient given emotional reassurance.
[2016-05-27 23:00] VITALS: BP 148/80
--- NOTE | 2016-05-28 07:31 | PN- Housestaff ---
JOSE MANUEL COLVIN,LAURA 05/28/16 0731: Subjective Follow-up For: Angioedema Subjective: Pt complains of swollen tongue last night. Pt seen today, feels itchy all over. solumedrol decreased to 40q12, will change to prednisone 40 mg tomorrow (decrease 10 mg every 2 days), benadryl ordered prn , and pepcid ordered. His voice is now back to baseline, and he is feeling improved, with only mild swelling of the cheeks and persistent lower lip swelling. Scrotal swelling has resolved. Review of Systems Constitutional: Reports: see HPI. Objective Last 24 Hrs of Vital Signs/I&O Vital Signs Date Time Temp Pulse Resp B/P Pulse O2 O2 Flow FiO2 Ox Delivery Rate 05/28 0855 86 150/82 05/28 0800 98.2 86 20 150/82 98 Room Air 05/27 2300 97.6 84 16 148/80 97 Room Air 05/27 1600 94 Room Air Room Air 05/27 1600 97.2 72 18 130/64 94 Room Air Room Air 05/27 1235 174/83 Intake & Output 05/28 1600 05/28 0800 05/28 0000 Intake Total 240 300 Output Total Balance 240 300 Intake, Oral 240 300 Physical Exam General Appearance: Alert, Oriented X3, Cooperative, No Acute Distress Cardiovascular: Regular Rate, Normal S1, Normal S2, No Murmurs Lungs: Clear to Auscultation, Normal Air Movement Abdomen: Normal Bowel Sounds, Soft, No Tenderness Current Medications: Current Medications Sig/Madelyn Start time Last Medication Dose Route Stop Time Status Admin Amlodipine Besylate 10 MG DAILY 05/27 1000 AC 05/28 PO 0855 Diphenhydramine HCl 25 MG AT BEDTIME PRN 05/28 2200 AC PO Diphenhydramine HCl 50 MG ONCE ONE 05/28 1030 DC PO 05/28 1031 Famotidine 20 MG BID 05/28 1002 AC PO Fenofibrate 96 MG DAILY 05/27 1000 AC 05/28 PO 0855 Heparin Sodium 5,000 UNIT Q8 05/27 1400 AC 05/28 (Porcine) SC 0611 Insulin Aspart 0 AT BEDTIME 05/28 2200 AC SC Insulin Aspart 0 TIDAC 05/28 1200 AC 05/28 SC 0852 Insulin Aspart 0 TIDAC/HS 05/28 0800 DC 05/27 SC 2128 Insulin Aspart 5 UNITS .STK-MED ONE 05/27 2124 DC SC 05/27 2125 Insulin Aspart 0 TIDAC 05/26 1700 DC 05/27 SC 1718 Melatonin 5 MG AT BEDTIME 05/26 2199 AC 05/27 PO 2119 Methylprednisolone 40 MG 0600,1800 05/28 1800 AC IV Methylprednisolone 80 MG Q8 05/27 2200 AC 05/28 IV 0614 Methylprednisolone 40 MG ONCE ONE 05/27 1445 DC 05/27 IV 05/27 1446 1545 Methylprednisolone 40 MG Q8 05/27 1400 DC 05/27 IV 1434 Omeprazole 40 MG DAILY AC 05/27 0930 AC 05/28 PO 0611 Last 24 Hrs of Lab/Edgar Results Last 24 Hrs of Labs/Mics: Laboratory Tests 05/27/16 1430: PT 11.4, INR 1.09 Assessment/Plan Assessment: 50-year-old male with PMH of HTN, HLD, IDDM, esophageal ring, presented with bilateral cheeks, lips, and scrotal swelling. He has been taking lisinopril for 2 years. No history of new meds/food. Possible chemical exposure from home cleaning. 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 He has not seen a dentist yet. Pt admitted to ICU for close monitoring of respiratory status, subsequently transferred to . # Bilateral cheeks, lips, and scrotal swelling, unknown trigger, been on lisinopril for 2 years - In the ED, he received 125 mg IV solumedrol, 50 mg IV diphenhydramine, [address] Hansen from ENT evaluated his airway in the ED, found to be patent. - Currently respiratory status stable although he had an episode of difficulty breathing on 05/27/16 requiring another dose of benadryl and pepcid. I spoke to Dr. Daíz, recommend solumedrol 80Q8 for 2 days, then reduce to q12 after. Dr. Díaz does not think he needs to come and re-evaluate his airway, if his respiratory status worsens, he suggests intubation. Expect edema to improve in 48 hours. - CXR: Left basilar airspace opacity may reflect atelectasis, an underlying infiltrate is not excluded. - Pt/INR normal * Solumedrol 80 Q 8 as per ENT, decreased to 40q12, will change to prednisone 40 mg tomorrow (decrease 10 mg every 2 days), benadryl ordered prn, and pepcid ordered * Order benadryl and pecid as needed * Low threshold to intubate * Dental f/u at discharge * Stable for transfer to with repeat ENT evaluation. # Hx of HTN * Lisinopril added to allergy list * Pt has been instructed to not take ACEI/ARBs (-pril/-sartan) * Amlodipine 10 mg started, continue as outpatient if BP well controlled # Hx of HLD * Continue fenofibrate # Hx of DM - hba1c 7.4 * Hold home lantus and metformin * Accucheck, and novolog SS (high dose sliding scale given elevated blood sugar on steroids) # Continue home meds - Protonix Diet: heart healthy (chopped and thin) DVT ppx: mech and pharm (heparin) FULL CODE Problem List: 1. Angioedema Pain Ratin Pain Location: none Pain Goal: Remain pain free Pain Plan: none Tomorrow's Labs & Rationales: none DVT/Prophylaxis: mechanical, pharmacological CLEMENT ABDI MD 05/28/16 1127: Attending MD Review Statement Attending Statement Attending MD Statement: examined this patient, discuss w/resident/PA/ACCOUNTING MACHINE OPERATOR, agreed w/resident/PA/ACCOUNTING MACHINE OPERATOR, discussed with family, reviewed EMR data (avail), discussed with nursing, discussed with case mgmt, reviewed images, amended to note Attending Assessment/Plan: Clement Ybarra M.D. have examined this patient, reviewed available EMR data, personally reviewed images, discussed with resident/PA/ACCOUNTING MACHINE OPERATOR, discussed management plan with housestaff and nursing staff, discussed managment plan all of healthcare providers, discussed management plan with patient and/or family, agreed with resident/PA/ACCOUNTING MACHINE OPERATOR. The past history and parts of the chart have been autopopulated. hold steroids, benadryl, pepcid, ENT follow up
[2016-05-28 08:00] VITALS: BP 150/82
--- NOTE | 2016-05-28 08:00 | NUR ---
NOTIFIED MANAGER IMAGE DR RICHARD OF PATIENT REPORTING ITCHY TONGUE AND LOWER LIP. NO SWELLING NOTED. ALSO PATIENT REPORTED CHEST TIGHTNESS 3/. MANAGER IMAGE REPORTS WILL GO IN TO EVALUATE PATIENT. WILL CONTINUE TO MONITOR.
[2016-05-28] MEDS ORDERED: FAMOTIDINE20 M1 PO (10:57)
[2016-05-28] MEDS ORDERED: PREDNISONE10 M2 PO (10:59)
[2016-05-28] MEDS ORDERED: BENADRYL25 MG PO (11:01)
--- NOTE | 2016-05-28 11:01 | Patient Discharge Instructions ---
Discharge Instructions General Discharge Information You were seen/treated for: Angioedema, most likely due to lisinopril Special Instructions: - Please stop taking lisinopril (avoid medications that ends in -pril or -sartan ) - Please follow up with PCP for blood sugar control - Please follow up with your dentist. Diet Continue normal diet: Yes Recommended Diet: Diabetic Activity Full Activity/No Limits: Yes Acute Coronary Syndrome Inclusion Criteria At DC or during hospital stay patient has or had the following: ACS DIAGNOSIS No Discharge Core Measures Meds if any: Prescribed or Continued at Discharge Meds if any: NOT Prescribed or Continued at Discharge Congestive Heart Failure Inclusion Criteria At DC or during hospital stay patient has or had the following: CHF DIAGNOSIS No Discharge Core Measures Meds if any: Prescribed or Continued at Discharge Meds if any: NOT Prescribed or Continued at Discharge Cerebrovascular accident Inclusion Criteria At DC or during hospital stay patient has or had the following: CVA/TIA Diagnosis No Discharge Core Measures Meds if any: Prescribed or Continued at Discharge Meds if any: NOT Prescribed or Continued at Discharge Venous thromboembolism Inclusion Criteria VTE Diagnosis No VTE Type NONE VTE Confirmed by (Test) NONE Discharge Core Measures - Per Current guidelines, there needs to be overlap - treatment for the first 5 days of Warfarin therapy. - If discharged on Warfarin prior to 5 days of - overlap therapy, the patient will need to be - assessed for post discharge needs including - *Post discharge parental anticoagulation - *Warfarin and/or parental anticoagulation education - *Follow up date to check INR post discharge At least 5 days overlap therapy as Inpatient No Meds if any: Prescribed or Continued at Discharge Note: Overlap Therapy is Warfarin and Anticoagulant Meds if any: NOT Prescribed or Continued at Discharge
--- NOTE | 2016-05-28 11:08 | Discharge Summary ---
Visit Information Visit Dates Admission Date: 05/26/16 Discharge Date: 05/29/16 Hospital Course Course Attending Physician: JHONNY COLVIN,[facility] Primary Care Physician: JENNIFER COLVIN,[facility] Course: 50-year-old male with PMH of HTN, HLD, IDDM, esophageal ring, presented with bilateral cheeks, lips, and scrotal swelling. He has been taking lisinopril for 2 years. No history of new meds/food. Possible chemical exposure from home cleaning. A day [employer], his right upper tooth broke, and he put advil gel cap in the area to help relieve the pain. He has not seen a dentist yet. Pt admitted to ICU for close monitoring of respiratory status, subsequently transferred to . The angioedema is thought to be due to lisinopril. Pt has been advised to avoid ACEI and ARBs (-pril/-sartan). We tried him on amlodipine, but he complained of tingling and itchiness. So he was subsequently sent home on BB for antihypertensive with recommendation to follow up with PCP. Pt was discharged on PO prednisone taper, pepcid, and benadryl. For more detailed hospital course, see below: # Bilateral cheeks, lips, and scrotal swelling, been on lisinopril for 2 years, most likely due to lisinopril - In the ED, he received 125 mg IV solumedrol, 50 mg IV diphenhydramine, [address] Hansen from ENT evaluated his airway in the ED, found to be patent. - Respiratory status stable although he had an episode of difficulty breathing on 05/27/16 requiring another dose of benadryl and pepcid. I spoke to Dr. Díaz, recommend solumedrol 80Q8 for 2 days, then reduce to q12 after. Dr. Díaz does not think he needs to come and re-evaluate his airway, if his respiratory status worsens, he suggests intubation. Expect edema to improve in 48 hours. - CXR: Left basilar airspace opacity may reflect atelectasis, an underlying infiltrate is not excluded. - Pt/INR normal * Solumedrol 80Q8 as per ENT, subsequently decreased to 40q12, discharged on prednisone 40 mg (decrease 10 mg every 2 days), benadryl, and pepcid. * Dental f/u at discharge # Hx of HTN * Lisinopril added to allergy list * Pt has been instructed to not take ACEI/ARBs (-pril/-sartan) * Amlodipine 10 mg started, but he was complaining of itchiness, subsequently discharged on BB, with close follow up with PCP # Hx of HLD * Continue fenofibrate # Hx of DM - hba1c 7.4 * Hold home lantus and metformin while inpatient, continue at discharge * Accucheck, and novolog SS (high dose sliding scale given elevated blood sugar on steroids) # Continue home meds - Protonix Diet: heart healthy DVT ppx: mech and pharm (heparin) FULL CODE Allergies: Coded Allergies: Penicillins (CHILDHOOD REACTION 05/07/15) lisinopril (ANGIODEMA 05/26/16) Disposition Summary Disposition Principal Diagnosis: Angioedema Additional Diagnosis: Hypertension Diabetes Discharge Disposition: home or self care Discharge Instructions General Discharge Information Code Status: Full Code Patient's Diet: Diabetic diet Patient's Activity: As tolerated Follow-Up Instructions/Appts: You were seen/treated for: Angioedema, most likely due to lisinopril Special Instructions: - Please stop taking lisinopril (avoid medications that ends in -pril or -sartan ) - Please follow up with PCP for blood sugar control - Please follow up with your dentist. Medications at Discharge Discharge Medications: Stop taking the following medications: Lisinopril (Zestril) 10 MG TABLET ORAL DAILY Continue taking these medications: Pantoprazole Sodium (Pantoprazole Sodium) 20 MG TABLET. 40 Milligram ORAL DAILY Comments: PER PT Metformin HCl (Glucophage) 1,000 MG TABLET 1,000 Milligram ORAL TWICE DAILY Comments: PER PT Ginkgo Biloba [place] Extract (Ginkgo Biloba) (Unknown Strength) TABLET Unknown Dose ORAL DAILY Comments: PER PT Fenofibrate (Fenofibrate) 120 MG TABLET 1 Tablet ORAL DAILY Qty = 30 Comments: LAST GIVEN 05/29/16 @ 1000 Insulin Glargine,Hum.rec.anlog (Lantus Solostar) 100 UNIT/ML (3 ML) INSULN.PEN 18 Units Inject into fatty tissue TWICE DAILY Qty = 15 Start taking the following new medications: Prednisone (Prednisone) 10 MG TABLET 1 Tablet ORAL As Directed Qty = 20 No Refills Instructions: Please take 40 mg for 2 days then 30 mg for 2 days then 20 mg for 2 days then 10 mg for 2 days then stop Comments: NOT GIVEN Famotidine (Famotidine) 20 MG TABLET 20 Milligram ORAL TWICE DAILY as needed for Allergy, itching Qty = 30 No Refills Diphenhydramine HCl (Benadryl) 25 MG CAPSULE 50 Milligram ORAL Every night as needed for allergy Qty = 30 No Refills Comments: LAST GIVEN 05/29/16 @ 0630 Metoprolol Tartrate (Metoprolol Tartrate) 25 MG TABLET 1 Tablet ORAL TWICE DAILY Qty = 60 No Refills Comments: NOT GIVEN Copies To: JENNIFER COLVIN,REX Attending MD Review Statement Documenting Attending: BARBARA ALCARAZ MD Other Findings: Agree with above plan of care upon discharge.
--- NOTE | 2016-05-28 12:30 | NUR ---
NOTIFIED ANIMAL CARE TAKER OF PATIENT STILL COMPLAINING OF FEELING "ITCHY", NOTED SMALL RASH TO UPPER SHOULDERS. ANIMAL CARE TAKER DR RICHARD #[id number] TO EVALUATE PATIENT.
[2016-05-28 16:00] VITALS: BP 130/80
--- NOTE | 2016-05-28 16:00 | NUR ---
PT ALERT AND ORIENTED C/O ITCHING ON BACK, NECK, ABD, AND ARMS. RASH NOTED ON BACK AND NECK. PT DENIED SOB OR DIFFICULTY BREATHING. DR. MULLER NOTIFIED AND IN TO EVALUATED PT. PT GIVEN BENADRYL PER HER ORDERS. PT STATES THAT HE HAD SOME RELIEVE FROM THE ITCHING WITH THE MEDICATION.
[2016-05-28 19:55] VITALS: BP 146/88
--- NOTE | 2016-05-28 20:18 | NUR ---
NURSING NOTE; LATE ENTRY; PT ADMITTED TO 215 FROM ICU AT 195. PT ALERT AND ORIENTEDX3, AMBULATED TO BED, STEADY GAIT NOTED, ON RA, LCTA, DENIES SOB, RASH NOTED TO BACK, CHEST AND ARMS, C/O OF NO PAIN, ORIENTED TO ROOM AND CALL MCHUGH, WILL CONT TO MONITOR.
[2016-05-29 01:53] VITALS: BP 134/82
--- NOTE | 2016-05-29 06:30 | NUR ---
PT NOTED TO HAVE REDNESS IN SCLERA OF R EYE. PT STATES IT FEELS IRRITATED, BUT DENIES RUBBING OR TOUCHING IT. PT CONTINUES WITH ITCHY RASH TO BACK, CHEST, NECK, ARMS. NO SWELLING NOTED. DR SALDIVAR NOTIFIED OF NEW EYE REDNESS.
[2016-05-29 06:50] VITALS: BP 150/92
--- NOTE | 2016-05-29 07:46 | PN- Housestaff ---
JAMIE COLVIN,AFSHIN 05/29/16 0746: Subjective Follow-up For: Angioedema Subjective: Patient seen and examined. He has seen sitting upright in his bed resting comfortably. He appears to be in no acute distress. He reports that he has had some eye discomfort with associated redness overnight but is only mildly concerned about it. He continues to deny any shortness of breath or any persistent uric area or rash. He is requesting to be discharged. Otherwise she denies any blurred/double vision, lightheadedness/dizziness, headache, fever, chills, chest pain, palpitations, worsening shortness of breath , cough, nausea, vomiting, diarrhea, outpatient, urinary frequency/urgency/ burning/pain, facial swelling. No overnight events reported. Review of Systems Constitutional: Reports: see HPI. Objective Last 24 Hrs of Vital Signs/I&O Vital Signs Date Time Temp Pulse Resp B/P Pulse O2 O2 Flow FiO2 Ox Delivery Rate 05/29 1417 98.1 79 20 143/67 95 Room Air 05/29 0650 97.7 63 18 150/92 96 Room Air 05/29 0153 98.7 61 18 134/82 94 Room Air 05/28 1955 98.8 78 20 146/88 94 Room Air Intake & Output 05/29 1600 05/29 0800 05/29 0000 Intake Total 720 240 500 Output Total Balance 720 240 500 Intake, IV 20 Intake, Oral 700 240 500 Patient 93.894 kg Weight Physical Exam General Appearance: Alert, Oriented X3, Cooperative, No Acute Distress Other Physical Findings: General -well developed, well-nourished middle-aged man in no acute distress Skin-normal appearing skin without rash or induration, normal capillary refill HEENT - NCAT, PERRL, EOMI, anicteric sclera Cardio - S1, S2 w/o murmurs/gallops/rubs Resp - CTA bilaterally w/o wheezing/rhochi/crackles GI - soft, nontender, nondistended, bowel sounds present Neuro - Awake and alert, CN II - XII grossly intact Extremities - no edema, pulses intact Current Medications: Current Medications Sig/Madelyn Start time Last Medication Dose Route Stop Time Status Admin Amlodipine Besylate 10 MG DAILY 05/27 1000 DC 05/28 PO 0855 Diphenhydramine HCl 25 MG DAILY PRN 05/29 0625 DCD 05/29 PO 0627 Diphenhydramine HCl 25 MG AT BEDTIME PRN 05/28 2200 DC PO Famotidine 20 MG BID 05/28 1002 DCD 05/29 PO 0943 Fenofibrate 96 MG DAILY 05/27 1000 DCD 05/29 PO 0940 Heparin Sodium 5,000 UNIT Q8 05/27 1400 DCD 05/29 (Porcine) SC 1428 Insulin Aspart 0 AT BEDTIME 05/28 2200 DCD 05/28 SC 2127 Insulin Aspart 0 TIDAC 05/28 1200 DCD 05/29 SC 1428 Melatonin 5 MG AT BEDTIME 05/26 2200 DCD 05/28 PO 2128 Methylprednisolone 40 MG 0600,1800 05/28 1800 DCD 05/29 IV 0609 Omeprazole 40 MG DAILY AC 05/27 0930 DCD 05/29 PO 0609 Patient Medication 1 ED .STK-MED ONE 05/[address] Teaching ED 05/29 1405 Assessment/Plan Assessment: Patient is clinically improving without any evidence of persistent angioedema. Patient reportedly had a Urticarial area reaction to amlodipine. Patient was followed off amlodipine with resolution of his symptoms. She was started on metoprolol for discharge or control of his hypertension with instruction to follow-up with Dr. Cano as an outpatient. Problem list: -Angioedema -Allergic drug reaction -Hypertension -Hyperlipidemia -Diabetes mellitus Plan: -General medicine -LARRY/ARB drugs for angioedema -Follow off amlodipine for rash -Benadryl as needed for allergic reaction/angioedema -Continue all other home medications -Accu-Cheks 3 times a day before meals/at bedtime -NovoLog sliding scale insulin -Heart healthy diet -DVT prophylaxis -Full code Problem List: 1. Angioedema Pain Ratin Pain Location: None Pain Goal: Remain pain free Pain Plan: See assessment Tomorrow's Labs & Rationales: None BARBARA ALCARAZ MD 05/29/162041: Attending MD Review Statement Attending Statement Attending MD Statement: examined this patient, discuss w/resident/PA/CUSTOMS MANAGER, agreed w/resident/PA/CUSTOMS MANAGER, reviewed EMR data (avail), discussed with nursing, discussed with case mgmt, amended to note Attending Assessment/Plan: The patient was seen and discussed with house staff. Agree with the plan of care as outlined. OK to discharge patient today. Will add Metoprolol for BP control as had rash from Amlodipine.
[2016-05-29] MEDS ORDERED: PREDNISONE10 M2 PO (08:15)
[2016-05-29] MEDS ORDERED: METOPROLOL TART25 M1 PO (13:23)
[2016-05-29 14:17] VITALS: BP 143/67
== END 2016-05-29 16:35 | DRG 916 ==
LOC: ENRESERVTM → ENRESERVDT → ERH 13:21 → CRI 15:43 → ERHI 15:43 → 2NB 15:43 → ENPENDDIS 15:43 → CRI 18:01 → 2NB 05-28 19:52
PROVIDERS: Internal Medicine; Physician Assistant Medical; Student in an Organized Health Care Education/Training Program; ADMIT Hospitalist
PROC: 0CJS8ZZ Inspection of Larynx, Via Natural or Artificial Opening Endoscopic (ICD-10-PCS; principal; 2016-05-26)
DX: T78.3XXA Angioneurotic edema, initial encounter (principal); K22.2 Esophageal obstruction; I10 Essential (primary) hypertension; T46.4X5A Adverse effect of angiotensin-converting-enzyme inhibitors, initial encounter; Y92.009 Unspecified place in unspecified non-institutional (private) residence as the place of occurrence of the external cause; E78.5 Hyperlipidemia, unspecified; E11.9 Type 2 diabetes mellitus without complications; Z79.4 Long term (current) use of insulin; K21.9 Gastro-esophageal reflux disease without esophagitis
CPT/HCPCS: 2NBSP; CCU; 82436; 93005; 93010; 96374; 96375; J1200; J1644; J1815; J2920; J2930

== ENCOUNTER 2016-06-09 13:42 | Emergency (ER) | payer OTHER ==
[~2016-06-09] VITALS: Ht 185.4 cm; Wt 93.9 kg
[~2016-06-09 13:42] MED LIST changes: +BENADRYL25 MG PO; +FAMOTIDINE20 M1 PO; +LANTUS SOL100 UNIT/1 SC; +METOPROLOL TART25 M1 PO; +PREDNISONE10 M2 PO
[2016-06-09 13:52] VITALS: BP 151/80
[2016-06-09] MEDS ORDERED: PERCOCET 7.5-31 EACH PO (14:20)
[2016-06-09] MEDS ORDERED: CLEOCIN HCL300 M1 PO (14:20)
--- NOTE | 2016-06-09 14:21 | ED THROAT/DENTAL COMPLAINT ---
History of Present Illness General Chief Complaint: Sore Throat, Dental Pain Stated Complaint: DENTAL PAIN Source: patient Exam Limitations: no limitations Vital Signs & Intake/Output Vital Signs & Intake/Output Vital Signs Date Time Temp Pulse Resp B/P Pulse O2 O2 Flow FiO2 Ox Delivery Rate 06/09 1430 98.0 90 06/09 1352 97.8 70 20 151/80 98 Room Air Room Air Allergies Coded Allergies: Penicillins (CHILDHOOD REACTION 05/07/15) lisinopril (ANGIODEMA 05/26/16) Reconcile Medications Clindamycin HCl (Cleocin HCl) 300 MG CAPSULE 1 CAP PO TID dental infection Diphenhydramine HCl (Benadryl) 25 MG CAPSULE 50 MG PO QPM PRN allergy Famotidine 20 MG TABLET 20 MG PO BID PRN Allergy, itching Fenofibrate 120 MG TABLET 1 TAB PO DAILY CHOLESTEROL (Reported) Ginkgo Biloba [place] Extract (Ginkgo Biloba) (Unknown Strength) TABLET (Unknown Dose) PO DAILY SUPPLEMENT (Reported) Insulin Glargine,Hum.rec.anlog (Lantus Solostar) 100 UNIT/ML (3 ML) INSULN.PEN 18 U SC BID DIABETES (Reported) Metformin HCl (Glucophage) 1,000 MG TABLET 1,000 MG PO BID DIABETES (Reported ) Metoprolol Tartrate 25 MG TABLET 1 TAB PO BID HYPERTENSION Oxycodone HCl/Acetaminophen (Percocet 7.5-325 MG Tablet) 7.5 MG-325 MG TABLET 1-2 TAB PO TID pain Pantoprazole Sodium 20 MG TABLET.DR 40 MG PO DAILY GI (Reported) Triage Note: PT TO ED WITH C/O RIGHT UPPER AND LOWER TOOTH PAIN NEEDS EXTRACTIONS "HAVE TO CALL TOMORROW", PT TO ED FOR INCREASING PAIN "PAIN MEDS NOT WORKING". Triage Nurses Notes Reviewed? yes Onset: Abrupt Duration: day(s): (few), constant, continues in ED Timing: recent history Injury Environment: home No Modifying Factors: none HPI: 50-year-old male comes into emergency room with complaints of severe right upper dental pain has been going on for the past couple days. Patient reports that he saw his dentist yesterday who told him he needs to see an oral surgeon but the pain became more severe last night. Pain is sharp. Continuous. Located in the right upper and right lower molars. Denies any other associated symptoms. (BREONNA PA,HIRAM) Past History Travel History Traveled to [place] past 21 day No Medical History Any Pertinent Medical History? see below for history Neurological: NONE EENT: NONE Cardiovascular: hypertension, hyperlipidemia Respiratory: NONE Gastrointestinal: GERD, ESOPHAGEAL RING STRETCHED Hepatic: NONE Renal: NONE Musculoskeletal: NONE Psychiatric: NONE Endocrine: diabetes Blood Disorders: NONE Cancer(s): NONE DIRECTOR ALUMNI RELATIONS/Reproductive: NONE History of MRSA: No History of VRE: No History of CDIFF: No Influenza Vaccine: 12/09/15 Surgical History Surgical History: non-contributory Psychosocial History Who do you live with Spouse Services at Home None What is your primary language Italian Tobacco Use: Never used ETOH Use: denies use Illicit Drug Use: denies illicit drug use Family History Hx Contributory? No (HIRAM JONES) Review of Systems Review of Systems Constitutional: Reports: no symptoms. EENTM: Reports: see HPI. Respiratory: Reports: no symptoms. Cardiovascular: Reports: no symptoms. GI: Reports: no symptoms. Genitourinary: Reports: no symptoms. Musculoskeletal: Reports: no symptoms. Skin: Reports: no symptoms. Neurological/Psychological: Reports: no symptoms. Hematologic/Endocrine: Reports: no symptoms. Immunologic/Allergic: Reports: no symptoms. All Other Systems: Reviewed and Negative (HIRAM JONES) Physical Exam Physical Exam General Appearance: well developed/nourished, no apparent distress, alert Head: atraumatic, normal appearance Eyes: Bilateral: normal appearance, EOMI. Ears: Bilateral: canal normal. Nose: normal inspection Mouth/Throat: normal mouth inspection, dental tenderness, Poor dentition, multiple cracked teeth, inflammation of the gumline Neck: normal inspection, full range of motion Cardiovascular/Respiratory: no respiratory distress Back: normal inspection Neurologic/Psych: awake, alert, oriented x 3, normal gait, normal mood/affect Skin: intact, normal color Core Measures ACS in differential dx? No Severe Sepsis Present: No Septic Shock Present: No (HIRAM JONES) Progress Differential Diagnosis: aspirated tooth, carious tooth, epiglottitis, Ludwigs angina, meningitis, odontogenic abscess, hector-tonsillar abscess, pharyngeal for. body, stomatitis/gingivitis, strep pharyngitis, tooth fracture Plan of Care: Current Medications Sig/Madelyn Start time Last Medication Dose Stop Time Status Admin Morphine Sulfate 6 MG ONCE ONE 06/09 1430 AC (Morphine) 06/09 1431 Departure Departure Disposition: HOME OR SELF CARE Condition: Stable Clinical Impression Primary Impression: Dental infection Referrals: REX RODRIGUEZ MD (PCP/Family) Additional Instructions: Take Percocet for pain. Take clindamycin and discontinue azithromycin. Follow- up with oral surgeon that was provided to you. Please go over all results of today's visit with your primary care doctor. Contact your primary care doctor to let them know you were here in the emergency room. There may be nonspecific findings which may not be related to your visit today here in the emergency room but may require further evaluation and chronic monitoring by your primary care doctor. If you had a laceration today the chance of foreign body always remains. You should follow-up with your primary care doctor for recheck in 3-5 days for a wound check. If you had an x-ray done there is a chance that a fracture could have been missed on initial read and you should follow-up with your primary care doctor for repeat x-rays if symptoms persist. If your blood pressure was elevated here in the emergency room please have rechecked by her primary care doctor within the next 48 hours by your primary care doctor. If you were prescribed a narcotic here in the emergency room or any type of controlled substances you're not allowed to drive while taking this medication or operate any type of heavy machinery. Narcotics can make you feel lightheaded dizziness nausea and can cause constipation. You may need to roller picker a stool softener. Thank you for choosing [facility] emergency room. Please return to the emergency room immediately if you have any other concerns worsening of symptoms. Departure Forms: Customer Survey General Discharge Information Prescriptions: Current Visit Scripts Oxycodone HCl/Acetaminophen (Percocet 7.5-325 MG Tablet) 1-2 TAB PO TID #15 TAB Clindamycin HCl (Cleocin HCl) 1 CAP PO TID #30 CAP Comments 06/09/2016 4:05:10 PM Patient feels better after morphine. Patient will follow up with oral surgeon provided to him. Return if any other concerns. Patient understands and agrees with plan of care. (HIRAM JONES) PA/DIRECTOR HOME Co-Sign Statement Statement: ED Attending supervision documentation- [] I saw and evaluated the patient. I have also reviewed all the pertinent lab results and diagnostic results. I agree with the findings and the plan of care as documented in the PA's/DIRECTOR HOME's documentation. x I have reviewed the ED Record and agree with the PA's/DIRECTOR HOME's documentation. [] Additions or exceptions (if any) to the PAs/DIRECTOR HOME's note and plan are summarized below: [] (CATALINA COLVIN,CANDY)
== END 2016-06-09 14:50 ==
LOC: ERH 13:42
DX: K04.7 Periapical abscess without sinus (principal)
CPT/HCPCS: 96372

== ENCOUNTER 2016-08-04 12:08 | Emergency (ER) | payer OTHER ==
[~2016-08-04] VITALS: Ht 185.4 cm; Wt 95.3 kg
[~2016-08-04 12:08] MED LIST changes: +CLEOCIN HCL300 M1 PO; +PERCOCET 7.5-31 EACH PO
[2016-08-04 12:16] VITALS: BP 148/81
--- NOTE | 2016-08-04 12:30 | ED EAR COMPLAINT ---
History of Present Illness General Chief Complaint: Ear Complaints Stated Complaint: R EAR PAIN Source: patient, family, old records Exam Limitations: no limitations Vital Signs & Intake/Output Vital Signs & Intake/Output Vital Signs Date Time Temp Pulse Resp B/P B/P Pulse O2 O2 Flow FiO2 Mean Ox Delivery Rate 08/04 1216 98.0 55 16 148/81 98 Room Air Room Air Allergies Coded Allergies: Penicillins (CHILDHOOD REACTION 08/04/16) lisinopril (ANGIODEMA 08/04/16) Reconcile Medications Clindamycin HCl (Cleocin HCl) 300 MG CAPSULE 1 CAP PO TID dental infection Diphenhydramine HCl (Benadryl) 25 MG CAPSULE 50 MG PO QPM PRN allergy Famotidine 20 MG TABLET 20 MG PO BID PRN Allergy, itching Fenofibrate 120 MG TABLET 1 TAB PO DAILY CHOLESTEROL (Reported) Ginkgo Biloba [place] Extract (Ginkgo Biloba) (Unknown Strength) TABLET (Unknown Dose) PO DAILY SUPPLEMENT (Reported) Ibuprofen 600 MG TABLET 1 TAB PO TID PRN PAIN with food Insulin Glargine,Hum.rec.anlog (Lantus Solostar) 100 UNIT/ML (3 ML) INSULN.PEN 18 U SC BID DIABETES (Reported) Metformin HCl (Glucophage) 1,000 MG TABLET 1,000 MG PO BID DIABETES (Reported ) Metoprolol Tartrate 25 MG TABLET 1 TAB PO BID HYPERTENSION Oxycodone HCl/Acetaminophen (Percocet 7.5-325 MG Tablet) 7.5 MG-325 MG TABLET 1-2 TAB PO TID pain Oxycodone HCl/Acetaminophen (Percocet 5-325 MG Tablet) 5 MG-325 MG TABLET 1-2 TAB PO Q6P PRN PAIN Pantoprazole Sodium 20 MG TABLET.DR 40 MG PO DAILY GI (Reported) Triage Note: PT TO TRIAGE WITH FOR INABLILITY TO HEAR OUT OF RIGHT EAR. PT HAS PAIN TO EAR. DENIES FEVERS. PT GOT WATER IN HIS EAR AT [facility] Triage Nurses Notes Reviewed? yes HPI: Recently returned from vacation and had gotten water in his ear. Since then has been having increasing pain and decreased hearing to his right ear. There is no radiation of the pain. The pain is aching in nature. Patient was seen by his primary care physician who put him on eardrops antibiotics. The pain worsened so he called her again yesterday and she put him on oral antibiotics. The pain is still not any better so altered again today and she informed him to go to the emergency department. The pain is throbbing in nature and aching. There is no radiation. There are no aggravating does decrease after Motrin however the patient states that the pain keeps him up at night. At its worst the pain is 10 out of 10. Past History Travel History Traveled to [place] past 21 day No Medical History Any Pertinent Medical History? 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 No Review of Systems Review of Systems Constitutional: Reports: no symptoms. EENTM: Reports: see HPI, ear pain, hearing changes. Respiratory: Reports: no symptoms. Cardiovascular: Reports: no symptoms. GI: Reports: no symptoms. Neurological/Psychological: Reports: no symptoms. Immunologic/Allergic: Reports: no symptoms. Physical Exam Physical Exam General Appearance: well developed/nourished, alert, awake, anxious, mild distress Head: atraumatic, normal appearance Eyes: Bilateral: PERRL, EOMI. Ears: Left: canal normal, Tympanic normal. Right: erythema, swelling, tenderness. Nose: normal inspection Neck: normal inspection, supple, no lad Cardiovascular/Respiratory: normal breath sounds, normal peripheral pulses, regular rate/rhythm, no respiratory distress Neurologic/Psych: no motor/sensory deficits, awake, alert, oriented x 3, normal gait, normal mood/affect Progress Differential Diagnoses I considered the following diagnoses in my evaluation of the patient: [OTITS EXTERNA] Plan of Care: Current Medications Sig/Madelyn Start time Last Medication Dose Stop Time Status Admin Oxycodone/ 1 TAB ONCE ONE 08/04 1245 UNVr Acetaminophen 08/04 1246 (Percocet) Initial ED EKG: none Departure Departure Disposition: HOME OR SELF CARE Condition: Stable Clinical Impression Primary Impression: Otitis externa Qualifiers: Otitis externa type: swimmer's ear Laterality: right Chronicity: acute Qualified Code: H60.331 - Swimmer's ear, right ear Referrals: REX RODRIGUEZ MD (PCP/Family) ALISON CARLOS MD Additional Instructions: CONTINSU CURRENT MEDICATIONS FOLLOW UP WITH ENT RETURN FOR ANY CONCERNS Departure Forms: Customer Survey General Discharge Information Prescriptions: Current Visit Scripts Ibuprofen 1 TAB PO TID PRN PAIN #20 TAB with food Oxycodone HCl/Acetaminophen (Percocet 5-325 MG Tablet) 1-2 TAB PO Q6P PRN PAIN #20 TAB
[2016-08-04] MEDS ORDERED: IBUPROFEN600 M1 PO (12:32)
[2016-08-04] MEDS ORDERED: PERCOCET 5-3251 EACH PO (12:32)
== END 2016-08-04 12:39 ==
LOC: ERH 12:08
DX: H60.91 Unspecified otitis externa, right ear (principal)

== ENCOUNTER 2016-09-03 21:03 | Emergency (ER) | payer OTHER ==
[~2016-09-03] VITALS: Ht 185.4 cm; Wt 98.4 kg
[~2016-09-03 21:03] MED LIST changes: +IBUPROFEN600 M1 PO; +PERCOCET 5-3251 EACH PO
--- NOTE | 2016-09-03 22:06 | ED HEADACHE COMPLAINT ---
History of Present Illness General Chief Complaint: Headache Stated Complaint: ORR Source: patient, family Exam Limitations: no limitations Vital Signs & Intake/Output Vital Signs & Intake/Output Vital Signs Date Time Temp Pulse Resp B/P B/P Pulse O2 O2 Flow FiO2 Mean Ox Delivery Rate 09/03 2251 Room Air 09/030 97.5 68 16 188/90 97 Room Air Allergies Coded Allergies: Penicillins (CHILDHOOD REACTION 08/04/16) lisinopril (ANGIODEMA 08/04/16) Reconcile Medications Atorvastatin Calcium 40 MG TABLET 1 TAB PO DAILY CHOLESTEROL (Reported) Ginkgo Biloba [place] Extract (Ginkgo Biloba) (Unknown Strength) TABLET (Unknown Dose) PO DAILY SUPPLEMENT (Reported) Ibuprofen 800 MG TABLET 1 TAB PO TID PRN PAIN Insulin Glargine,Hum.rec.anlog (Lantus Solostar) 100 UNIT/ML (3 ML) INSULN.PEN 18 U SC BID DIABETES (Reported) Metformin HCl (Glucophage) 1,000 MG TABLET 1,000 MG PO BID DIABETES (Reported ) Metoprolol Tartrate 25 MG TABLET 1 TAB PO BID HYPERTENSION Pantoprazole Sodium 20 MG TABLET.DR 40 MG PO DAILY GI (Reported) Sumatriptan Succinate (Imitrex) 50 MG TABLET 1 TAB PO TID PRN MIGRAINE Triage Note: R SIDED HEADACHE SINCE 7PM. -N/V. +PHOTOSENSITIVITY. PUPILS EQUAL AND REACTIVE, NO NYSTAGMUS ON ASSESSMENT. DEMONSTRATES GOOD FOCAL CONTROL. SPEAKS IN CLEAR SENTENCES, MENTATING APPROPRIATELY. HYPERTENSIVE 188/90. ACCUCHECK 234 IN TRIAGE. DENIES CHEST PAIN. TOOK MOTRIN 600MG WITHOUT RELIEF Triage Nurses Notes Reviewed? yes Onset: Gradual Duration: hour(s): Timing: recent history Quality/Severity: moderate Head Injury Location: RIGHT TEMPORAL AREA Modifying Factors: Improves With: rest. Associated Symptoms: PHOTOPHOBIA HPI: 51 yo gentleman h/o diabetes, presents with right sided headache that began this evening, sudden onset, associated with photophobia. "I felt four sharp pains in my head." At worst, pain was 7/10. He took OTC analgesics and reports it is now 3/10. He has no fever, chills, vision changes, sinus congestion. He feels "off" but is otherwise well. Past History Travel History Traveled to [place] past 21 day No Medical History Any Pertinent Medical History? 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 No Review of Systems Review of Systems Constitutional: Reports: no symptoms. Eyes: Reports: no symptoms. Ears, Nose, Throat, Mouth: Reports: no symptoms. Respiratory: Reports: no symptoms. Cardiovascular: Reports: no symptoms. Gastrointestinal/Abdominal: Reports: no symptoms. Genitourinary: Reports: no symptoms. Musculoskeletal: Reports: no symptoms. Skin: Reports: no symptoms. Neurological/Psychological: Reports: no symptoms. Hematologic/Endocrine: Reports: no symptoms. Endocrine: Reports: no symptoms. Immunologic/Allergic: Reports: no symptoms. All Other Systems: Reviewed and Negative Physical Exam Physical Exam General Appearance: well developed/nourished, mild distress Head: atraumatic, normal appearance Eyes: Bilateral: normal appearance, PERRL, EOMI. Ears, Nose, Throat: normal pharynx, normal ENT inspection Neck: normal inspection, supple, full range of motion Respiratory: normal breath sounds, chest non-tender, no respiratory distress, quiet respiration, lungs clear Cardiovascular: regular rate/rhythm Back: normal inspection, normal range of motion Extremities: normal inspection, normal capillary refill, normal range of motion Psychiatric: awake, alert, oriented x 3 Cranial Nerves: normal hearing, normal speech, PERRL Coordination/Gait: normal finger to nose, normal gait Motor/Sensory: no motor/sensory deficits Skin: intact, normal color, warm/dry Core Measures Severe Sepsis Present: No Septic Shock Present: No Progress Differential Diagnosis: cluster ORR, intracranial Hem., migraine ORR, subarach. Hem., tension ORR Plan of Care: Orders Procedure Date/time Status CT HEAD WO IV CONTRAST 09/03 2205 Active Diagnostic Imaging: Viewed by Me: CT Scan. Discussed w/RAD: CT Scan. Radiology Impression: head ct negative... full report below. Comments: PATIENT: TOMAS BAPTISTE PRESENT AGE: 51 PATIENT ACCOUNT NO: [id number] : 65 LOCATION: [facility] ORDERING PHYSICIAN: JACKIE MARTINEZ MD SERVICE DATE: 09/03/16 EXAM TYPE: CAT - CT HEAD WO IV CONTRAST EXAMINATION: CT HEAD WITHOUT CONTRAST CLINICAL INFORMATION: Headache. COMPARISON: None TECHNIQUE: Contiguous axial imaging was performed from the skull base to vertex without intravenous administration of contrast. DLP: 628.72 mGy-cm FINDINGS: There is no evidence of acute intracranial hemorrhage or territorial infarction. No abnormal mass effect or midline shift is seen. [place] to white matter differentiation is well preserved. No extra-axial fluid collections are identified. The ventricles are normal in size. There is no abnormal attenuation within the brain parenchyma. The osseous structures and soft tissues are normal. The mastoid air cells and visualized portions of the paranasal sinuses are well aerated. IMPRESSION: No acute intracranial pathology. DICTATED BY: LIZ GONZALEZ MD DATE/TIME DICTATED:09/03/162309 [employer] PORT[employer] CONSULTANT:JONI DATE/TIME TRANSCRIBED:09/03/162309 CONFIDENTIAL, DO NOT COPY WITHOUT APPROPRIATE AUTHORIZATION. <Electronically signed in Other Vendor System> SIGNED BY: LIZ GONZALEZ MD 09/03/163 Departure Departure Disposition: HOME OR SELF CARE Condition: Stable Clinical Impression Primary Impression: Headache Referrals: REX RODRIGUEZ MD (PCP/Family) Departure Forms: Customer Survey General Discharge Information Prescriptions: Current Visit Scripts Sumatriptan Succinate (Imitrex) 1 TAB PO TID PRN MIGRAINE #9 TAB Ref 1 Ibuprofen 1 TAB PO TID PRN PAIN #30 TAB Ref 1 Comments 09/03/16, 23:35... pt feeling better... head ct negative... sent in rx for ibuprofen and imitrex.... close follow up with pmd advised.
[2016-09-03] MEDS ORDERED: ATORVASTATIN CA40 M1 PO (22:24)
--- NOTE | 2016-09-03 23:15 | CT SCAN REPORT ---
EXAMINATION: CT HEAD WITHOUT CONTRAST CLINICAL INFORMATION: Headache. COMPARISON: None TECHNIQUE: Contiguous axial imaging was performed from the skull base to vertex without intravenous administration of contrast. DLP: 628.72 mGy-cm FINDINGS: There is no evidence of acute intracranial hemorrhage or territorial infarction. No abnormal mass effect or midline shift is seen. [place] to white matter differentiation is well preserved. No extra-axial fluid collections are identified. The ventricles are normal in size. There is no abnormal attenuation within the brain parenchyma. The osseous structures and soft tissues are normal. The mastoid air cells and visualized portions of the paranasal sinuses are well aerated. IMPRESSION: No acute intracranial pathology.
[2016-09-03] MEDS ORDERED: IMITREX50 M1 PO (23:35)
[2016-09-03] MEDS ORDERED: IBUPROFEN800 M1 PO (23:35)
[2016-09-03 23:46] VITALS: BP 140/64
== END 2016-09-03 23:47 ==
LOC: ERH 21:03
DX: R51 Headache (principal)

== ENCOUNTER 2017-11-01 17:07 | Emergency (ER) | payer OTHER ==
[~2017-11-01] VITALS: Ht 185.4 cm; Wt 98.4 kg
[~2017-11-01 17:07] MED LIST changes: +ATORVASTATIN CA40 M1 PO; +CHERATUSSIN AC118 M1 PO; +CLEOCIN HCL150 M1 PO; +IBUPROFEN800 M1 PO; +IMITREX50 M1 PO; +TESSALON PERLE100 M1 PO; +ZITHROMAX500 M2 PO
[2017-11-01 17:57] LABS: ABSOLUTE BASOPHIL COUNT 0 /CUMM (0.0-0.2); ABSOLUTE EOSINOPHIL COUNT 0.2 /CUMM (0.0-0.7); ABSOLUTE LYMPH COUNT 2.1 /CUMM (1.2-3.4); ABSOLUTE MONOCYTE COUNT 0.4 /CUMM (0.10-0.60); BASOPHIL % 0.5 % (0.0-2.0); EOSINOPHIL % 3.2 % (0-5); HEMATOCRIT 40.3 % (42-52); MEAN CORPUSCULAR HGB 30.2 PG (27.0-31.0); MEAN CORPUSCULAR HGB CONC 33.8 G/DL (33.0-37.0); MEAN CORPUSCULAR VOLUME 89.4 FL (80.0-94.0); MEAN PLATELET VOLUME 6.9 FL (7.4-10.4); PLATELET COUNT 291 /CUMM (130-400); RBC DISTRIBUTION WIDTH 12.4 % (11.5-14.5); RED BLOOD CELL CT 4.51 /CUMM (4.70-6.10); WHITE BLOOD CELL COUNT 7.8 /CUMM (4.8-10.8)
--- NOTE | 2017-11-01 18:34 | CT SCAN REPORT ---
EXAMINATION: CT HEAD WITHOUT CONTRAST CLINICAL INFORMATION: Pleural effusion COMPARISON: 2016 TECHNIQUE: Contiguous axial imaging was performed from the skull base to vertex without intravenous administration of contrast. DLP: 642 mGy-cm FINDINGS: There is no evidence of acute intracranial hemorrhage or territorial infarction. No abnormal mass effect or midline shift is seen. [place] to white matter differentiation is well preserved. No extra-axial fluid collections are identified. The ventricles are normal in size. There is no abnormal attenuation within the brain parenchyma. The osseous structures and soft tissues are normal. The mastoid air cells and visualized portions of the paranasal sinuses are well aerated. IMPRESSION: No acute intracranial pathology.
--- NOTE | 2017-11-01 21:12 | ED AMS/SEIZURE/WEAK/DIZZY ---
History of Present Illness General Chief Complaint: Altered Mental Status Stated Complaint: DISORIENTED PER PT Source: patient Exam Limitations: no limitations Vital Signs & Intake/Output Vital Signs & Intake/Output Vital Signs Date Time Temp Pulse Resp B/P B/P Pulse O2 O2 Flow FiO2 Mean Ox Delivery Rate 11/01 2048 Room Air 11/01 1712 96.5 61 18 170/97 98 Room Air Room Air Allergies Coded Allergies: Penicillins (CHILDHOOD REACTION 08/04/16) lisinopril (ANGIODEMA 08/04/16) Reconcile Medications Atorvastatin Calcium 40 MG TABLET 1 TAB PO DAILY CHOLESTEROL (Reported) Azithromycin (Zithromax) 500 MG TABLET 1 TAB PO DAILY PNEUMONIA Benzonatate (Tessalon Perle) 100 MG CAPSULE 1 CAP PO TID PRN COUGH Clindamycin HCl (Cleocin HCl) 150 MG CAPSULE 1 CAP PO TID detnal infection Codeine Phosphate/Guaifenesi (Cheratussin AC Syrup) 10 MG-100 MG/5 ML LIQUID 5 -10 ML PO BID PRN cough Ginkgo Biloba [place] Extract (Ginkgo Biloba) (Unknown Strength) TABLET (Unknown Dose) PO DAILY SUPPLEMENT (Reported) Ibuprofen 800 MG TABLET 1 TAB PO TID PRN PAIN Insulin Glargine,Hum.rec.anlog (Lantus Solostar) 100 UNIT/ML (3 ML) INSULN.PEN 18 U SC BID DIABETES (Reported) Metformin HCl (Glucophage) 1,000 MG TABLET 1,000 MG PO BID DIABETES (Reported ) Metoprolol Tartrate 25 MG TABLET 1 TAB PO BID HYPERTENSION Oxycodone HCl/Acetaminophen (Percocet 5-325 MG Tablet) 5 MG-325 MG TABLET 1 TAB PO Q6P PRN pain Pantoprazole Sodium 20 MG TABLET.DR 40 MG PO DAILY GI (Reported) Sumatriptan Succinate (Imitrex) 50 MG TABLET 1 TAB PO TID PRN MIGRAINE Triage Note: TRIAGE: 52 Y/O MALE PRESENTS C/O DISORIENTATION SINCE 4PM TODAY. 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 A&O X3. NEUROS APPEAR TO BE INTACT. FINGERSTICK: 224 IN TRIAGE. Triage Nurses Notes Reviewed? yes Onset: Abrupt Duration: minute(s):, gone now Timing: single episode today Severity: severe HPI: Patient presents for evaluation of a gradual onset of disorientation that began about 4:00 this afternoon. Patient states it began about one hour after completing work today. He states he felt "off", and "disoriented". He denies not knowing where he was or who was with him but states simply "didn't feel right". While he was driving after work with his he states he didn't feel comfortable driving and asked her to take over the wheel. At that point he requested that they go to the emergency department for an evaluation. While he was in the emergency department waiting area he states he experienced a bilateral sharp abdominal pain with associated belching that has now resolved. He states he currently feels hungry. He states that over the past few years he has had prior episodes although states it is been less than 6 episodes like this. This episode however seems to have been the most intense. Nothing seemed to make him feel better or worse. Of note over the past 3 or 4 months he has had "trouble finding common words". Past History Travel History Traveled to [place] past 21 day No Medical History Any Pertinent Medical History? 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 No Review of Systems Review of Systems Constitutional: Reports: no symptoms. EENTM: Reports: no symptoms. Respiratory: Reports: no symptoms. Cardiovascular: Reports: no symptoms. GI: Reports: no symptoms. Genitourinary: Reports: no symptoms. Musculoskeletal: Reports: no symptoms. Skin: Reports: no symptoms. Neurological/Psychological: Reports: see HPI. Hematologic/Endocrine: Reports: no symptoms. Immunologic/Allergic: Reports: no symptoms. All Other Systems: Reviewed and Negative Physical Exam Physical Exam General Appearance: see below Comments: Gen.: Well-nourished, well-developed, no acute respiratory distress. Head: Normocephalic, atraumatic. Eyes: Normal inspection bilaterally, PERRLA, EOMI Ears: Normal inspection bilaterally Nose: Normal inspection Throat/mouth : Moist mucosa Neck: Supple, full range of motion, no goiter, no carotid bruits, equal carotid pulses Heart: Regular rate and rhythm, no murmurs rubs or gallops Lungs: Clear to auscultation bilaterally with normal air entry Chest: Nontender Back: Normal range of motion Abdomen: Nondistended, normal bowel sounds Extremities: Normal range of motion grossly, equal radial pulses, no cyanosis clubbing or edema, equal hand grasp, no pronator drift, no dysmetria Neurologic: Cranial nerves 2 through 12 intact, speech is clear and without apparent aphasia Skin: warm and dry Psychiatric: Calm, cooperative, no apparent delusions or hallucinations Core Measures ACS in differential dx? No CVA/TIA Diagnosis No Sepsis Present: No Sepsis Focused Exam Completed? No Progress Differential Diagnosis: cva, DYSRHYTHMIA, ELECTROLYTE ABNORMALITY, DEHYDRATION, Plan of Care: Orders Procedure Date/time Status URINE DRUG SCREEN FOR ER ONLY 11/01 1729 Complete TROPONIN LEVEL 11/01 1729 Complete ETHANOL 11/01 1729 Complete COMPREHENSIVE METABOLIC PANEL 11/01 1729 Complete CBC WITHOUT DIFFERENTIAL 11/01 172 Complete EKG 11/01 1729 Active Laboratory Tests 11/01/17 2017: Urine Opiates Screen < 100, Methadone Screen < 40, Barbiturate Screen < 60, Ur Phencyclidine Scrn < 6.00, Amphetamines Screen < 100, U Benzodiazepines Scrn < 85, Urine Cocaine Screen < 50, Urine Cannabis Screen < 5.00 11/01/17 1752: Anion Gap 8, Estimated GFR > 60, BUN/Creatinine Ratio 21.3, Glucose 197 H, Calcium 9.8, Total Bilirubin 0.9, AST 26, ALT 44, Alkaline Phosphatase 115, Troponin I < 0.01, Total Protein 7.2, Albumin 4.1, Globulin 3.1, Albumin/ Globulin Ratio 1.3, CBC w Diff NO MAN DIFF REQ, RBC 4.51 L, MCV 89.4, MCH 30.2, MCHC 33.8, RDW 12.4, MPV 6.9 L, Gran % 64.0, Lymphocytes % 27.4, Monocytes % 4.9, Eosinophils % 3.2, Basophils % 0.5, Absolute Granulocytes 5.0, Absolute Lymphocytes 2.1, Absolute Monocytes 0.4, Absolute Eosinophils 0.2, Absolute Basophils 0, Serum Alcohol < 10.0 Diagnostic Imaging: Discussed w/RAD: CT Scan. Radiology Impression: no acute abnormality Initial ED EKG: NSR, rate (57), nonspecific ST T wave chg Prior EKG: unchanged Departure Departure Disposition: HOME OR SELF CARE Condition: Stable Clinical Impression Primary Impression: Disorientation, unspecified Referrals: Mila Pickering (PCP/Family) Additional Instructions: The cause for your episode of disorientation is unclear at this point there seems to be no indication of a stroke or significant abnormality on your blood tests or CAT scan. Please follow-up with your primary care physician on Friday for reevaluation. Return if any concerns or sudden worsening. Please note that there might be incidental findings in your evaluation that are unrelated to the current emergency department visit. Please notify your primary care doctor about this emergency department visit in order to obtain and review all of the testing performed so that these incidental findings can be monitored as needed. If you had an x-ray performed, please understand that some fractures or other findings may not be seen on the initial set of x-rays. If your symptoms persist you might need a repeat set of x-rays to check for such a fracture. If you had a laceration evaluated, please understand that foreign bodies such as glass or wood may not be visible to the naked eye or on plain x-rays. If the wound becomes red, swollen, increasingly more painful or if there is any drainage from the wound, please have it reevaluated by a physician for the possibility of a retained foreign body. If you're unable to follow up as outlined in the discharge instructions please return to the emergency department. Thank you for choosing the [facility] Emergency Department for your care. It was a pleasure to serve you today. Salbador Wagner M.D. [facility] Departure Forms: Customer Survey General Discharge Information
[2017-11-01 21:39] VITALS: BP 186/100
== END 2017-11-01 21:41 ==
LOC: ERH 17:07
PROVIDERS: Physician Assistant
DX: R41.82 Altered mental status, unspecified (principal)
CPT/HCPCS: 80307; 93005; 93010; G0480